=== PATIENT | female | born 1980 | race Caucasian/White ===

== ENCOUNTER → 2022-11-27 | Outpatient (CLI) | payer OTHER ==
[2022-11-27 18:39] LABS: Basophils # (A) 0.07 X 10*3/uL (0.00-0.10); Basophils % (A) 0.6 %; Eosinophils # (A) 0.24 X 10*3/uL (0.04-0.35); HCT 42.4 % (37.2-46.3); HGB 12.6 g/dL (12.0-15.0); Immature Grans, Automated 1.3 %; Lymphocytes # (A) 3.43 X 10*3/uL (0.90-5.00); Lymphocytes % (A) 28.8 %; MCH 25.4 pg (27.0-32.0); MCHC 29.7 g/dL (32.0-37.0); MCV 85.5 fL (80.0-97.0); Mean Platelet Volume 11.2 fL (9.5-12.2); Monocytes # (A) 0.71 X 10*3/uL (0.20-1.00); NRBC Per 100 WBC 0 /100 WBCS (0.0-0.0); Neutrophils # (A) 7.31 X 10*3/uL (1.80-7.70); Neutrophils % (A) 61.3 %; Platelet Count 333 X 10*3/uL (140-440); RBC 4.96 X 10*6/uL (4.10-5.20); WBC 11.91 X 10*3/uL (4.50-10.00)
[2022-11-27 19:19] LABS: ALT 25 U/L (8-44); AST 19 U/L (13-35); Albumin 4.4 g/dL (3.8-4.9); Albumin/Globulin Ratio 1.54 (1.60-3.17); Alkaline Phosphatase 50 U/L (41-126); Blood Urea Nitrogen 17.1 mg/dL (9.0-27.0); Calcium 10.2 mg/dL (8.7-10.3); Carbon Dioxide 25.2 mmol/L (20.0-27.5); Chloride 102 mmol/L (96-109); Chol/HDL Ratio 3.01 Ratio; Globulin 2.8 g/dL (1.6-3.3); Glucose 78 mg/dL (70-110); LDL Cholesterol,Calculated 51.7 mg/dL (0.0-131.0); Non-African American GFR(CKD) 86.3 (60.0-200.0); Potassium 4.5 mmol/L (3.5-5.5); Sodium 139 mmol/L (135-145); Total Bilirubin <0.15 mg/dL (0.30-1.20); Total Protein 7.2 g/dL (6.2-8.2)
== END | disposition home or self-care (01) ==
LOC: LABWHC1 12:54
PROVIDERS: ATTEND Internal Medicine
DX: I10 Essential (primary) hypertension (principal); E05.90 Thyrotoxicosis, unspecified without thyrotoxic crisis or storm
CPT/HCPCS: 36415; 80053; 80061; 84439; 84443; 84481; 85025

== ENCOUNTER → 2023-12-13 | Outpatient (CLI) | payer OTHER ==
[2023-12-13 16:48] LABS: Basophils # (A) 0.05 X 10*3/uL (0.00-0.10); Basophils % (A) 0.7 %; Eosinophils # (A) 0.17 X 10*3/uL (0.04-0.35); Eosinophils % (A) 2.3 %; HCT 44.1 % (37.2-46.3); HGB 13.3 g/dL (12.0-15.0); Lymphocytes # (A) 2.66 X 10*3/uL (0.90-5.00); Lymphocytes % (A) 36.3 %; MCH 25.6 pg (27.0-32.0); MCHC 30.2 g/dL (32.0-37.0); MCV 84.8 FL (80.0-97.0); Mean Platelet Volume 10.8 FL (9.5-12.2); Monocytes % (A) 5.5 %; NRBC Per 100 WBC 0 X 10*3/uL (0.00-0.01); Neutrophils % (A) 54.5 %; Platelet Count 316 X 10*3/uL (140-440); RDW 15.3 % (11.5-14.5); WBC 7.33 X 10*3/uL (4.50-10.00)
[2023-12-13 17:08] LABS: ALT 74 U/L (8-44); AST 62 U/L (13-35); Albumin 4.4 g/dL (3.8-4.9); Albumin/Globulin Ratio 1.42 Ratio (1.60-3.17); Alkaline Phosphatase 41 U/L (41-126); BUN/Creat Ratio 18.56 Ratio (12.00-20.00); Blood Urea Nitrogen 16.7 mg/dL (9.0-27.0); Calcium 9.9 mg/dL (8.7-10.3); Chloride 103 mmol/L (96-109); Globulin 3.1 g/dL (1.6-3.3); Glucose 123 mg/dL (70-110); LDL Cholesterol,Calculated 107.7 mg/dL (0.0-131.0); Potassium 4.5 mmol/L (3.5-5.5); Sodium 140 mmol/L (135-145); T4, Free (Free Thyroxine) 1.53 ng/dL (0.80-1.80); Total Bilirubin 0.3 mg/dL (0.3-1.2); Total Protein 7.5 g/dL (6.2-8.2); VLDL Calculation 17.26 mg/dL (5.00-40.00)
[2023-12-14 16:54] LABS: % Iron Saturation 13.19 (12.00-45.00); Hepatitis A Antibody IgM Nonreactive; Hepatitis B Core IgM Nonreactive; Hepatitis B Surface Antigen Nonreactive; Hepatitis C IgG Antibody Nonreactive
== END | disposition home or self-care (01) ==
LOC: LABWHC1 09:21
PROVIDERS: ATTEND Internal Medicine
DX: Z00.00 Encounter for general adult medical examination without abnormal findings (principal); Z11.59 Encounter for screening for other viral diseases; Z86.39 Personal history of other endocrine, nutritional and metabolic disease
CPT/HCPCS: 36415; 80053; 80061; 80074; 83036; 83540; 83550; 84439; 84443; 85025; 86038; 86803

== ENCOUNTER → 2024-01-11 | Outpatient (CLI) | payer OTHER ==
--- NOTE | 2024-01-14 20:19 | MM ---
Reason for Exam: Screening (asymptomatic). Last screening mammogram was performed 12 month(s) ago. Patient History: Menarche at age 10. First Full-Term at age 24. Perimenopausal. Patient has history of breast feeding. Hormonal Contraceptives, from age 14 until age 24. Last menstrual period: 01/07/2024 Risk Values: Shaista 5 year model risk: 0.9%. NCI Lifetime model risk: 10.6%. Prior Study Comparison: 01/05/2023 Bilateral MG screening mammo w CAD, [facility]. 01/09/2023 Left MG work up mamm w CAD LT, [facility]. Tissue Density: There are scattered areas of fibroglandular density. Findings: Analyzed By CAD. Asymmetric density subareolar right MLO view has become more defined. This may represent superimposition shadow but further evaluation is recommended. Otherwise, no significant change. Overall Assessment: Incomplete: need additional imaging evaluation, BI-RAD 0 Management: Special View Mammogram of the right breast. Diagnostic Breast Ultrasound of the right breast. Additional views to include spot 3-D MLO and 3-D lateral views. Targeted right breast ultrasound if any persisting abnormality. [facility] will attempt to contact patient to return for supplemental views and ultrasound if indicated. Electronically signed and approved by: Corina Granados M.D. Radiologist
== END | disposition home or self-care (01) ==
LOC: RADMAMWWP 10:21
PROVIDERS: ATTEND Internal Medicine
DX: Z12.31 Encounter for screening mammogram for malignant neoplasm of breast (principal)
CPT/HCPCS: 77067

== ENCOUNTER → 2024-01-16 | Outpatient (CLI) | payer OTHER ==
--- NOTE | 2024-01-16 11:26 | MM ---
Reason for Exam: Additional evaluation requested from abnormal screening. Last screening mammogram was performed less than 1 month ago. Patient History: Menarche at age 10. First Full-Term at age 24. Perimenopausal. Patient has history of breast feeding. Hormonal Contraceptives, from age 14 until age 24. Risk Values: Shaista 5 year model risk: 0.9%. NCI Lifetime model risk: 10.6%. Prior Study Comparison: 01/05/2023 Bilateral MG screening mammo w CAD, [facility]. 01/09/2023 Left MG work up mamm w CAD LT, [facility]. 01/11/2024 Bilateral MG screening mammo w CAD, [facility]. Tissue Density: Left: There are scattered areas of fibroglandular density. Findings: Analyzed By CAD. Subareolar nodularity on the MLO view becomes less defined on spot 3-D and 3-D lateral views. This suggests superimposition shadow. A progression or a short interval follow-up is recommended given appearance on screening exam. Overall Assessment: Probably benign, BI-RAD 3 Management: Diagnostic Mammogram of the right breast in 6 months. . Results were given to the patient verbally at the time of exam. Patient should continue monthly self-breast exams. A clinical breast exam by your physician is recommended on an annual basis. This exam should not preclude additional follow-up of suspicious palpable abnormalities. Note on Shaista scores and lifetime risk: 1. A Shaista score greater than 3% is considered moderate risk. If this is the case, consider specialist referral to assess eligibility for a risk reducing agent. 2. If overall lifetime risk for the development of breast cancer is 20% or higher, the patient may qualify for future screening with alternating mammogram and breast MRI. Electronically signed and approved by: Corina Granados M.D. Radiologist
--- NOTE | 2024-01-16 12:39 | MM ---
Reason for Exam: Additional evaluation requested from abnormal screening. Last screening mammogram was performed less than 1 month ago. Patient History: Menarche at age 10. First Full-Term at age 24. Perimenopausal. Patient has history of breast feeding. Hormonal Contraceptives, from age 14 until age 24. Risk Values: Shaista 5 year model risk: 0.9%. NCI Lifetime model risk: 10.6%. Prior Study Comparison: 01/05/2023 Bilateral MG screening mammo w CAD, [facility]. 01/09/2023 Left MG work up mamm w CAD , [facility]. 01/11/2024 Bilateral MG screening mammo w CAD, [facility]. Tissue Density: Right: There are scattered areas of fibroglandular density. Findings: Analyzed By CAD. Subareolar nodularity on the MLO view becomes less defined on spot 3-D and 3-D lateral views. This suggests superimposition shadow. A progression or a short interval follow-up is recommended given appearance on screening exam. Overall Assessment: Probably benign, BI-RAD 3 Management: Diagnostic Mammogram of the right breast in 6 months. Results were given to the patient verbally at the time of exam. Patient should continue monthly self-breast exams. A clinical breast exam by your physician is recommended on an annual basis. This exam should not preclude additional follow-up of suspicious palpable abnormalities. Note on Shaista scores and lifetime risk: 1. A Shaista score greater than 3% is considered moderate risk. If this is the case, consider specialist referral to assess eligibility for a risk reducing agent. 2. If overall lifetime risk for the development of breast cancer is 20% or higher, the patient may qualify for future screening with alternating mammogram and breast MRI. Electronically signed and approved by: Corina Granados M.D. Radiologist
== END | disposition home or self-care (01) ==
LOC: RADMAMWWP 09:58
PROVIDERS: ATTEND Internal Medicine
DX: R92.323 Mammographic fibroglandular density, bilateral breasts (principal)
CPT/HCPCS: 77065; G0279; 77061

== ENCOUNTER → 2024-08-01 | Outpatient (CLI) | payer OTHER ==
[2024-08-01 15:27] LABS: Basophils # (A) 0.05 X 10*3/uL (0.00-0.10); Basophils % (A) 0.5 %; Eosinophils % (A) 2.2 %; HCT 45.4 % (37.2-46.3); HGB 13.9 g/dL (12.0-15.0); Lymphocytes % (A) 26.2 %; MCH 26.4 pg (27.0-32.0); MCHC 30.6 g/dL (32.0-37.0); MCV 86.1 FL (80.0-97.0); Monocytes # (A) 0.45 X 10*3/uL (0.20-1.00); Monocytes % (A) 4.9 %; NRBC Per 100 WBC 0 X 10*3/uL (0.00-0.01); Neutrophils # (A) 5.98 X 10*3/uL (1.80-7.70); Neutrophils % (A) 65.2 %; Platelet Count 299 X 10*3/uL (140-440); RBC 5.27 X 10*6/uL (4.10-5.20); RDW 14.7 % (11.5-14.5); WBC 9.17 X 10*3/uL (4.50-10.00)
[2024-08-01 16:15] LABS: ALT 80 U/L (8-44); AST 67 U/L (13-35); Albumin 4.4 g/dL (3.8-4.9); Albumin/Globulin Ratio 1.47 Ratio (1.60-3.17); Alkaline Phosphatase 56 U/L (41-126); BUN/Creat Ratio 22.75 Ratio (12.00-20.00); Blood Urea Nitrogen 18.2 mg/dL (9.0-27.0); Calcium 9.8 mg/dL (8.7-10.3); Carbon Dioxide 22.2 mmol/L (21.6-31.8); Chloride 102 mmol/L (96-109); Chol/HDL Ratio 3.47 Ratio; Glucose 162 mg/dL (70-110); LDL Cholesterol,Calculated 107.2 mg/dL (0.0-131.0); Magnesium 1.7 mg/dL (1.5-2.4); Potassium 4.6 mmol/L (3.5-5.5); Sodium 139 mmol/L (135-145); Total Bilirubin 0.4 mg/dL (0.3-1.2); Total Protein 7.4 g/dL (6.2-8.2)
== END ==
LOC: LABWHC1 09:02
PROVIDERS: ATTEND Internal Medicine
DX: Z00.00 Encounter for general adult medical examination without abnormal findings (principal); E11.9 Type 2 diabetes mellitus without complications; I10 Essential (primary) hypertension; Z86.39 Personal history of other endocrine, nutritional and metabolic disease
CPT/HCPCS: 36415; 80053; 80061; 82043; 82570; 83036; 83735; 84439; 84443; 85025

== ENCOUNTER → 2024-08-01 | Outpatient (CLI) | payer OTHER ==
--- NOTE | 2024-08-01 10:38 | MM ---
Reason for Exam: Follow-up at short interval from prior study. Last screening mammogram was performed 6 month(s) ago. Patient History: Menarche at age 10. First Full-Term at age 24. Perimenopausal. Patient has history of breast feeding. Hormonal Contraceptives, from age 14 until age 24. Risk Values: Shaista 5 year model risk: 0.9%. NCI Lifetime model risk: 10.5%. Prior Study Comparison: 01/11/2024 Bilateral MG screening mammo w CAD, [facility]. 01/16/2024 Left MG 3D work up w/cad LT, [facility]. 01/16/2024 Right MG 3D work up w/cad RT, [facility]. Tissue Density: Right: There are scattered areas of fibroglandular density. Findings: Analyzed By CAD. Pattern is stable No suspicious persistent nodules. No suspicious groups of microcalcifications, spiculated or lobular masses, architectural distortion or other secondary signs of malignancy are mammographically apparent. Overall Assessment: Negative, BI-RAD 1 Management: Screening Mammogram of both breasts in 6 months. A negative mammogram report should not preclude additional follow up of suspicious palpable abnormalities. Patient should continue monthly self breast exam. A clinical breast exam by your physician is recommended on an annual basis and results should be correlated with mammographic findings. Note on Shaista scores and lifetime risk: 1. A Shaista score greater than 3% is considered moderate risk. If this is the case, consider specialist referral to assess eligibility for a risk reducing agent. 2. If overall lifetime risk for the development of breast cancer is 20% or higher, the patient may qualify for future screening with alternating mammogram and breast MRI. [facility], , 08/01/2024 10:32 AM. Electronically signed and approved by: Dave Mcelroy D.O. Radiologis
== END | disposition home or self-care (01) ==
LOC: RADMAMWWP 10:19
PROVIDERS: ATTEND Internal Medicine
DX: R92.8 Other abnormal and inconclusive findings on diagnostic imaging of breast
CPT/HCPCS: 77061; 77065